=== PATIENT | male | born 1955 | race Caucasian/White ===

== ENCOUNTER 2023-01-03 13:33 | Outpatient (CLI) | payer MEDICARE, SELFPAY ==
--- NOTE | 2023-01-03 13:30 | RT.EKG_ITS ---
APPROVED REPORT Exam: Resting ECG Reason for Exam: evaluation of cardiac status Patient Location: O HR:66 bpm ECG Measurements Heart Rate 66 AXIS W[place] [id number] P [id number] QRSd 142 QRS -83 QT 429 T 3 QTc 450 Conclusion Atrial flutter with predominant 3:1 AV block...A-rate 200, multiple Ps Ventricular premature complex...V complex w/ short R-R interval IVCD, consider atypical RBBB...QRSd>120mS, terminal axis(90,270) Probable inferior infarct, ...Q>25mS, ST>0.07mV, T neg, II-aVF Anterior infarct, old...Q >40mS, abnormal ST-T, V2-V5
== END 2023-01-03 13:34 | disposition home or self-care (01) ==
LOC: DI.CARD 13:38
PROVIDERS: Visit Provider Internal Medicine Cardiovascular Disease
DX: I10 Essential (primary) hypertension (principal); I25.10 Atherosclerotic heart disease of native coronary artery without angina pectoris; I48.91 Unspecified atrial fibrillation; R94.31 Abnormal electrocardiogram [ECG] [EKG]; I25.2 Old myocardial infarction; I49.3 Ventricular premature depolarization
CPT/HCPCS: 93010

== ENCOUNTER → 2023-01-03 13:33 | Outpatient (BNVA) | payer MEDICARE, SELFPAY | PROVIDERS: Visit Provider Internal Medicine Cardiovascular Disease | DX: I48.91 Unspecified atrial fibrillation (principal); I25.10 Atherosclerotic heart disease of native coronary artery without angina pectoris; I10 Essential (primary) hypertension; I07.1 Rheumatic tricuspid insufficiency; I48.4 Atypical atrial flutter; Z79.01 Long term (current) use of anticoagulants | CPT/HCPCS: 93005; 99203 ==

== ENCOUNTER 2023-02-28 02:24 | Outpatient (CLI) | payer MEDICARE, SELFPAY ==
--- NOTE | 2023-02-28 | DI.CTLCSR_ITS ---
Exam(s) CT CHEST LUNG CANCER SCREEN EXAM: CT CHEST LUNG CANCER SCREEN CLINICAL HISTORY: SCREENING FOR LUNG CA, FORMER SMOKER, [id number]. TECHNIQUE: Imaging Protocol: Low Dose Technique CONTRAST MATERIAL: None COMPARISON: No exams were available for comparison FINDINGS: CHEST: LUNGS: There is a moderate size non loculated appearing right pleural effusion. Mild infiltrate in t he right lower lobe noted.. There are benign-appearing increased peripheral markings in mid-lower le ft lung both 0 confluent infiltrates and there is no pleural effusion on the left side. There are no significant findings trachea. Some mucus is seen at the level marlene. MEDIASTINUM: There is no obvious hilar nor mediastinal adenopathy. CARDIAC: Cardiomegaly noted. Coronary artery calcification. No pericardial effusion. Tortuous desc ending thoracic aorta. OTHER: OSSEOUS: No significant osseous lesions.No fracture. IMPRESSION: 1. Moderate-large right side pleural effusion. Cardiomegaly. Mild infiltrate in the right lower lob e. No left pleural effusion. Mild benign-appearing increased markings in the lower left lung field. 2. No obvious intrathoracic adenopathy. Cardiomegaly. 3. Lung RADS Cat 2S - Benign Appearance / Behavior: Nodules with a very low likelihood of becoming a clinically active cancer due to size or lack of growth Needs workup due to findings described manuel. Lung-RADS 1.0 CATEGORIES: Category 0 - Prior chest CT exam(s) being located for comparison. Category 1 - Annual screening in 12 months. No nodules or definitely benign nodules. Category 2 - Annual screening in 12 months. Benign appearance. Nodules with low likelihood of becomin g active cancer. Category 3 - 6-month follow-up. Probably benign. Short-term follow-up suggested. Nodules with low lik elihood of becoming active cancer. Category 4A - 3-month follow-up and CT/PET if >8 mm in size. Suspicious finding. Findings which requi re additional testing. Category 4B - Findings which require additional testing and tissue sampling. Category 4X - Category 3 or 4 nodules with additional features or imaging findings that increases the suspicion of malignancy. Modifier S- Potentially clinically significant findings (non lung cancer) RADIATION DOSE DELIVERED: 75.45mGy.cm Total DLP DATA REPOSITORY: All CT scans at this facility are submitted to the National Radiology Data Registry (NRDR) Dose Index Registry (DIR) with the [employer] ([employer]). RADIATION OPTIMIZATION: All CT scans at this facility use at least one of these dose optimization te chniques: automated exposure control; mA and/or kV adjustment per patient size (includes targeted exa ms where dose is matched to clinical indication); or iterative reconstruction.
== END 2023-02-28 02:44 ==
LOC: DI 02:24
PROVIDERS: Visit Provider Nurse Practitioner Family
DX: Z12.2 Encounter for screening for malignant neoplasm of respiratory organs (principal); Z87.891 Personal history of nicotine dependence; J90 Pleural effusion, not elsewhere classified; R91.8 Other nonspecific abnormal finding of lung field; I51.7 Cardiomegaly
CPT/HCPCS: 71271; 93306

== ENCOUNTER 2023-02-28 02:24 | Outpatient (CLI) | payer MEDICARE, SELFPAY ==
--- NOTE | 2023-02-28 14:09 | DI.US_ITS ---
APPROVED REPORT EXAM: Comprehensive 2D, Doppler, and color-flow Echocardiogram Patient Location: Out-Patient Last Puller: Dick Salvador RDMS, RVT Indications: tricuspid regurgitation, atypical atrial flutter, atherosclerosis Other Information Study Quality: Adequate. Technically limited study due to patient unable to follow breathing instruct ions. Conclusion The left ventricle is normal in size. Estimated ejection fraction is within the range of normal, 55% . Septal motion is paradoxic consistent with right ventricular volume overload Right ventricle is severely dilated with paradoxic septal motion Left atrium is normal in size Right atrium is severely dilated Aortic valve is trileaflet and mildly sclerotic without stenosis or regurgitation Mildly thickened mitral leaflets. Trace mitral regurgitation There appears to be a flail tricuspid leaflet with severe/torrential tricuspid regurgitation Estimated right ventricular systolic pressure is 31 mmHg Wall motion Left Ventricle The left ventricle is normal size. Left ventricular systolic function is within normal range There is normal left ventricular wall thickness. Paradoxic septal motion consistent with right ventricular vo lume overload. There is no ventricular septal defect visualized. LVEF is 55%. Right Ventricle Right ventricle is severely dilated. The RVSP is 30.6 mmHg. Right ventricular systolic function is g rossly normal. Atria The left atrium size is normal. Right atrium is severely dilated. The interatrial septum is intact wi th no evidence for an atrial septal defect. Aortic Valve The Aortic valve is mildly sclerotic. Aortic valve is trileaflet. There is no aortic valvular stenos is. No aortic regurgitation is present. Mitral Valve Mildly thickened mitral leaflets No evidence of mitral valve stenosis. Trace mitral regurgitation. Tricuspid Valve Flail leaflet is suggested There is no tricuspid valve stenosis. Severe tricuspid regurgitation. Pulmonic Valve The pulmonary valve is normal in structure. There is no pulmonic valvular stenosis. Trace pulmonic re gurgitation. Great Vessels The aortic root is normal in size. The ascending aorta is normal in size. Aortic arch is not well vis ualized. The IVC collapses <50% with inspiration. Pericardium There is no pericardial effusion. 2D Dimensions IVSD d PLAX 1.11 cm M: 0.6-1.2 LV Vol A2C d MOD 66.6 mL LVPW d PLAX 1.15 cm M: 0.6 - 1.2 LV Vol A4C d MOD 40.7 mL LVID d PLAX 3.81 cm M: 4.2 - 5.8 LA vol/ BSA A4C s A-L 12.5 mL/m2 LVDs 3.05 cm M: 2.5 - 4.0 LA Area A4C s MOD 12.17 cm2 Ao Root d 2.93 cm M: 3.1 - 3.7 LV EF A4C MOD 41.1 % Ao Asc Diam d 3.00 cm M: 2.6 - 3.4 LV EF A2C MOD 38.1 % LV EF Teichholz 40.7 % LV EF Biplane MOD 39.0 % LVEF (Wall's) 38.98 % M: 52 - 72 SV 21.29 mL LV Volume 42.08 mL M: 62 - 150 SV Index 11.52 mL/m2 LV Volume Index 22.74 mL/m2 M: 34 - 74 LV Vol Biplane MOD 54.6 mL FS 19.45 % LV Diastology MV E Vmax 0.69 (0.4-1.3 m/s) Aortic Valve LVOT Area 2.70 cm2 AoV Area Vmax 1.77 cm2 LVOT Vmax 0.51 m/s AoV Area/ BSA (Vmax) 0.96 cm2/m2 LVOT Mean Dwain. 0.34 m/s FIONA Mean Dwain. 1.53 cm2 LVOT Peak Grad 1.1 mmHg FIONA Mean Dwain. Index 0.83 cm2/m2 LVOT Mean Grad 0.5 mmHg LVOT VTI 0.104 m LVOT Diam s 1.85 cm AoV Vmax 0.78 m/s Velocity Ratio 0.65 AoV Mean Dwain. 0.60 m/s AoV Peak Grad 2.4 mmHg LVOT SV 28.09 mL AoV Mean Grad 1.5 mmHg AoV VTI 0.126 m AoV Area VTI 2.22 cm2 AoV Area/ BSA (VTI) 1.20 cm/m2 Mitral Valve MV DT 129 (160-240 msec) MV PHT 38 msec MV Area PHT 5.86 cm2 MV VTI 0.159 m MV Area VTI 1.76 (4.0-6.0 cm2) Pulmonary Valve PV Vmax 0.53 (0.5-1.5 m/s) RVOT Peak Gr. 0.54 mmHg PV Peak Grad 1.1 mmHg RVOT Mean Gr. 0.30 mmHg PV Mean Grad 0.7 mmHg RVOT VTI 0.074 m PV VTI 0.086 m RVOT Vmax 0.37 m/s Tricuspid Valve TR Peak Grad 22.6 mmHg TR Vmax 2.38 m/s RA Pressure 8.00 mmHg RVSP (TR) 30.6 mmHg
== END 2023-02-28 02:44 ==
LOC: DI 02:24
PROVIDERS: Visit Provider Internal Medicine Cardiovascular Disease
DX: I07.1 Rheumatic tricuspid insufficiency (principal); I25.10 Atherosclerotic heart disease of native coronary artery without angina pectoris; I48.4 Atypical atrial flutter
CPT/HCPCS: 93306

== ENCOUNTER → 2023-03-05 14:16 | Outpatient (BNVA) | payer MEDICARE, SELFPAY | PROVIDERS: Visit Provider Internal Medicine Cardiovascular Disease | DX: I07.1 Rheumatic tricuspid insufficiency (principal); I48.91 Unspecified atrial fibrillation; Z79.01 Long term (current) use of anticoagulants; I25.10 Atherosclerotic heart disease of native coronary artery without angina pectoris | CPT/HCPCS: 99214 ==

== ENCOUNTER → 2023-07-15 12:42 | Outpatient (BNVA) | payer MEDICARE, SELFPAY | PROVIDERS: Visit Provider Internal Medicine Cardiovascular Disease | DX: I07.1 Rheumatic tricuspid insufficiency (principal); I25.10 Atherosclerotic heart disease of native coronary artery without angina pectoris; I10 Essential (primary) hypertension | CPT/HCPCS: 99213 ==

== ENCOUNTER → 2023-10-15 12:38 | Outpatient (BNVA) | payer MEDICARE, SELFPAY | PROVIDERS: Visit Provider Internal Medicine Cardiovascular Disease | DX: I36.1 Nonrheumatic tricuspid (valve) insufficiency (principal); I48.19 Other persistent atrial fibrillation; Z79.01 Long term (current) use of anticoagulants; I12.9 Hypertensive chronic kidney disease with stage 1 through stage 4 chronic kidney disease, or unspecified chronic kidney disease; N18.4 Chronic kidney disease, stage 4 (severe); I25.10 Atherosclerotic heart disease of native coronary artery without angina pectoris | CPT/HCPCS: 99213 ==

== ENCOUNTER → 2024-04-16 13:01 | Outpatient (BNVA) | payer MEDICARE, SELFPAY | PROVIDERS: Visit Provider Internal Medicine Cardiovascular Disease | DX: I36.1 Nonrheumatic tricuspid (valve) insufficiency (principal); I48.19 Other persistent atrial fibrillation; I10 Essential (primary) hypertension | CPT/HCPCS: 99213 ==

== ENCOUNTER → 2024-10-15 12:51 | Outpatient (BNVA) | payer MEDICARE, SELFPAY | PROVIDERS: PCP Family Medicine; Referring Provider Family Medicine; Visit Provider Internal Medicine Cardiovascular Disease | DX: I36.1 Nonrheumatic tricuspid (valve) insufficiency (principal); I48.19 Other persistent atrial fibrillation; I25.10 Atherosclerotic heart disease of native coronary artery without angina pectoris | CPT/HCPCS: 99213 ==

== ENCOUNTER → 2024-10-20 14:33 | Outpatient (BNVA) | payer MEDICARE, SELFPAY | PROVIDERS: PCP Family Medicine; Referring Provider Family Medicine; Visit Provider Podiatrist | DX: L60.3 Nail dystrophy (principal); B35.1 Tinea unguium; L60.0 Ingrowing nail; M79.671 Pain in right foot; M79.672 Pain in left foot; I63.9 Cerebral infarction, unspecified; N18.4 Chronic kidney disease, stage 4 (severe); I73.89 Other specified peripheral vascular diseases; R09.89 Other specified symptoms and signs involving the circulatory and respiratory systems; R20.8 Other disturbances of skin sensation; R25.2 Cramp and spasm; L65.9 Nonscarring hair loss, unspecified; L60.8 Other nail disorders | CPT/HCPCS: 11719; 11730; 99214 ==

== ENCOUNTER → 2024-12-01 14:42 | Outpatient (BNVA) | payer MEDICARE, SELFPAY | PROVIDERS: PCP Family Medicine; Referring Provider Family Medicine; Visit Provider Podiatrist | DX: L60.0 Ingrowing nail (principal); B35.1 Tinea unguium; L60.3 Nail dystrophy; M79.671 Pain in right foot; M79.672 Pain in left foot; I63.9 Cerebral infarction, unspecified; N18.4 Chronic kidney disease, stage 4 (severe); I73.9 Peripheral vascular disease, unspecified | CPT/HCPCS: 99213 ==

== ENCOUNTER → 2025-01-27 11:08 | Outpatient (BNVA) | payer MEDICARE, SELFPAY | PROVIDERS: PCP Family Medicine; Referring Provider Podiatrist; Visit Provider Physical Therapy Assistant | DX: I73.9 Peripheral vascular disease, unspecified (principal) | CPT/HCPCS: 93922 ==

== ENCOUNTER → 2025-03-31 13:54 | Outpatient (BNVA) | payer MEDICARE, SELFPAY | PROVIDERS: PCP Family Medicine; Referring Provider Family Medicine; Visit Provider Podiatrist | DX: L60.3 Nail dystrophy (principal); M79.674 Pain in right toe(s); M79.675 Pain in left toe(s); L60.2 Onychogryphosis; B35.1 Tinea unguium; I63.9 Cerebral infarction, unspecified; N18.4 Chronic kidney disease, stage 4 (severe); I73.89 Other specified peripheral vascular diseases; R09.89 Other specified symptoms and signs involving the circulatory and respiratory systems; L65.9 Nonscarring hair loss, unspecified; L53.8 Other specified erythematous conditions; R23.8 Other skin changes | CPT/HCPCS: 11719; 11720 ==

== ENCOUNTER 2025-04-15 13:00 | Outpatient (CLI) | payer MEDICARE, SELFPAY ==
--- NOTE | 2025-04-15 13:00 | RT.EKG_ITS ---
APPROVED REPORT Exam: Resting ECG Reason for Exam: Afib Patient Location: O HR:55 bpm ECG Measurements Heart Rate [address] 223 P 228 QRSd 135 QRS -83 QT 458 T 107 QTc 438 Conclusion Atrial flutter, variable ventricular response Right bundle branch block...QRSd>120, terminal axis(90,270) Inferior infarct, old...Q >35mS, II III aVF Lateral leads are also involved...lat Q or ST-T abnormalities
== END 2025-04-15 13:01 | disposition home or self-care (01) ==
LOC: DI.CARD 13:01
PROVIDERS: PCP Family Medicine; Visit Provider Internal Medicine Cardiovascular Disease
DX: I48.19 Other persistent atrial fibrillation (principal); I45.10 Unspecified right bundle-branch block
CPT/HCPCS: 93010

== ENCOUNTER → 2025-04-15 13:45 | Outpatient (BNVA) | payer MEDICARE, SELFPAY | PROVIDERS: PCP Family Medicine; Referring Provider Family Medicine; Visit Provider Internal Medicine Cardiovascular Disease | DX: I36.1 Nonrheumatic tricuspid (valve) insufficiency (principal); I25.10 Atherosclerotic heart disease of native coronary artery without angina pectoris; I48.19 Other persistent atrial fibrillation | CPT/HCPCS: 99214; 93005 ==

== ENCOUNTER → 2025-10-07 13:29 | Outpatient (BNVA) | payer MEDICARE, SELFPAY | PROVIDERS: PCP Family Medicine; Referring Provider Family Medicine; Visit Provider Internal Medicine Cardiovascular Disease | DX: I36.1 Nonrheumatic tricuspid (valve) insufficiency (principal); I48.19 Other persistent atrial fibrillation; Z79.01 Long term (current) use of anticoagulants | CPT/HCPCS: 99213 ==